=== PATIENT | female | born 1955 | race Caucasian/White ===

== ENCOUNTER 2021-11-05 18:49 | Emergency (ER) | payer MEDICARE, SELFPAY ==
[2021-11-05 19:00] VITALS: BP 179/104; PULSE 82; RESP 18; TEMP 37.1; O2SAT 96; BMI 45.4
--- NOTE | 2021-11-05 22:03 | CTR_ITS ---
PROCEDURE INFORMATION: Exam: CT Head Without Contrast Exam date and time: 11/05/2021 10:15 PM Age: 66 years old Clinical indication: Headache not specified; Patient HX: C/O COLE / facial pain TECHNIQUE: Imaging protocol: Computed tomography of the head without contrast. Sagittal and coronal reformatted images were created and reviewed. Radiation optimization: All CT scans at this facility use at least one of these dose optimization techniques: automated exposure control; mA and/or kV adjustment per patient size (includes targeted exams where dose is matched to clinical indication); or iterative reconstruction. COMPARISON: No relevant prior studies available. RADIATION DOSE METRICS: Total DLP (mGy-cm): 1000.87 FINDINGS: Brain: No acute intracranial hemorrhage. No acute infarct. No intra-axial or extra-axial masses. Oneill-white matter differentiation is preserved. No cerebral edema. No extra-axial fluid collections. No midline shift. No evidence for Chiari 1 malformation. Focal areas of decreased attenuation consistent with old lacunar infarcts in the right and left basal ganglia. Cerebral ventricles: No hydrocephalus. Paranasal sinuses: Visualized paranasal sinuses are clear. Mastoid air cells: Mastoid air cells are clear bilaterally. Orbital cavities: Globes and lenses, extraocular muscles, and optic nerves are intact bilaterally. No acute intraorbital abnormality. Vasculature: Mild atherosclerotic changes in the visualized arteries. Bones/joints: No acute fracture. Soft tissues: The extracranial soft tissues are unremarkable. CT/CT head wo con* [id number] IMPRESSION: 1. No acute abnormality of the brain. 2. Old lacunar infarcts in the right and left basal ganglia. 3. Incidental/nonacute findings are listed in the report.
--- NOTE | 2021-11-05 22:05 | W.ED.GENADLT ---
Documented by User: Angela Hart MD 11/06/21 22:01 HPI - General Adult General: Chief complaint: General Medical Stated complaint: Sensitive head/chills Time Seen by Provider: 11/05/21 21:34 History of Present Illness: Patient is a 66-year-old female with a history of headache presenting to emergency room with concerns for headache and scalp sensitivity. Patient tells me that since 2 days ago, patient has noticed that there is a burning sensation over the frontal and parietal scalp. In addition, patient developed right-sided headache that radiates towards the left side. Patient in addition complains of bilateral neck pain. Patient denies any fever but reports mild chills. Patient denies any history of shingles. Patient denies any vision changes, facial droop, focal neurological deficits. Patient denies any vesicular lesions over the head. Since this morning, patient has noticed the redness in the bilateral frontal scalp. Patient denies any chest pain, shortness breath palpitation or lightheadedness or any abdominal or complaints. Patient tells me that every time she touches her scalp feels like a burning sensation. Patient denies any recent lotion use any history of allergies, or any head wears. Onset:2 days ago Duration:2 days Location:home Severity:mild/moderate Associated symptoms: Deny chest pain, dyspnea, nausea, palpitations or vomiting Review of Systems Const: Denies: fever(s) or chills Eyes: Denies: change in vision ENMT: Denies: mouth pain Card: Denies: chest pain or palpitations Resp: Denies: dyspnea or non-productive cough GI: Denies: abdominal pain, nausea, vomiting or diarrhea : Denies: dysuria Musc: Denies: extremity pain Skin/Breast: Reports: new lesions (+frontal and scalp erythema) Neuro: Reports: other (+headache); Denies: weakness in extremities Psych: Reports: other (Normal mood) Abdi/Lymph: Denies: easy bruising PFSH ED PFSH: Medical History (Updated 11/05/21 @ 22:12 by Angela Hart MD) Headache Social History (Updated 11/05/21 @ 22:08 by Angela Hart MD) Smoking and tobacco status: never smoked Alcohol intake: never Substance/Drug Use: never Physical Exam Const: COMMON NORMALS: alert HENMT: COMMON NORMALS: atraumatic HEAD & SCALP: atraumatic MOUTH: moist mucous membranes not abnormal OTHER: + Mild nonindurated macular erythema over the frontal and and parietal scalp with mild excoriation, no palpable fluctuance over the erythema site, erythema appears to be mildly tender to palpation +TM intact b/l, no EAC erythema or edema Eye: COMMON NORMALS: EOMs intact bilaterally and conjunctivae normal CONJUNCTIVA: Yes conjunctivae normal OTHER: +flurosceine exam normal Neck/C-Spine: COMMON NORMALS: full ROM and supple Resp: COMMON NORMALS: normal respiratory effort and clear to auscultation bilaterally AUSCULTATION: clear to auscultation bilaterally Cardio: COMMON NORMALS: regular rate RATE: regular rate GI: COMMON NORMALS: Soft to palpation and non-tender PALPATION: Yes Soft to palpation Extremity: COMMON NORMALS: full ROM Neuro: SENSORIUM/ORIENTATION: Yes alert MOTOR EXAM: No Abnormal motor strength present and Other motor observations present (no focal motor deficits) Psych: COMMON NORMALS: speech normal SPEECH: Yes normal speech MOOD & AFFECT: Yes euthymic mood Skin: OTHER: + Mild nonindurated macular erythema over the frontal and and parietal scalp with mild excoriation, no palpable fluctuance over the erythema site, erythema appears to be mildly tender to palpation Course Vital Signs: Vital signs: Vital Signs Temperature 98.7 F 11/05/21 19:00 Pulse Rate 82 11/05/21 23:09 Respiratory Rate 20 H 11/05/21 23:09 Blood Pressure 158/94 11/05/21 23:09 Pulse Oximetry 95 11/05/21 23:09 [facility] - General Adult Medical Decision Making 66-year-old female with history of headache presenting to emergency room with new frontal/scalp erythema and new onset headache x2 days. On exam, patient neurologically intact. There is no signs of critical lesion on fluoreine exam of the eye. Present time, the erythema is not suggestive of herpes as it is not dermatomal and is bilateral. Patient has no physical signs of vesicles. Do not suspect Cal[place] Smith syndrome or ocular zoster. CT brain is negative for any acute finding. Lab work-up including WBC within normal limit. At the present time, do not suspect subarachnoid bleed, tenderness or other acute intra cranial processes as patient has associated rash, no fever, no nuchal rigidity or other historical details consistent with these pathologies. I have given patient follow up with our supervisor case loading to be seen by our outpatient Dermatology for scalp findings. Patient aware of a call from our supervisor case loading to schedule for appointment(s) and verbalizes understanding of the importance of following up. Patient was found to have elevated blood pressure. Patient received 5 mg of amlodipine with significant improvement in blood pressure. This patient does not have a history of prior elevated blood pressure, patient instructed follow-up PCP for further evaluation. Patient is given strict/emergent precaution for any signs of stroke-like symptoms, chest pain, vision changes, or any new or concerning complaints. Rx cephalexin for possible cellulitis, aquaphor for dry skin Disposition: Discharge. Patient counseled regarding diagnostic impression, treatment plan. Patient given ED strict return precautions to return for continuation, worsening, or development of new symptoms. Instructed to f/u w/ PCP and paper inserter regarding symptoms today. Patient verbalized understanding. Lab Data : 11/05/21 22:59 11/05/21 22:[address] 11/05/21 22:03 IMPRESSION: 1. No acute abnormality of the brain. 2. Old lacunar infarcts in the right and left basal ganglia. 3. Incidental/nonacute findings are listed in the report. Laboratory Results WBC 8.6 10^3/uL (4.0-10.0) 11/05/21 22:59 RBC 4.74 10^6/uL (4.1-5.3) 11/05/21 22:59 Hgb 14.4 g/dL (11.5-15.3) 11/05/21 22:59 Hct 43.1 % (37.0-47.0) 11/05/21 22: MCV 90.9 fl (81-99) 11/05/21 22:59 MCH 30.4 pg (28.0-34.0) 11/05/21 22:59 MCHC 33.4 g/dL (30.0-36.0) 11/05/21 22: RDW 13.8 % (12.1-15.1) 11/05/21 22:59 Plt Count 170 10^3/cmm (130-400) 11/05/21 22:59 MPV 8.5 fL (7.4-10.4) 11/05/21 22:59 Neut % (Auto) 81.4 % 11/05/21 22:59 Lymph % (Auto) 11.0 % 11/05/21 22:59 Boyd % (Auto) 6.4 % 11/05/21 22:59 Eos % (Auto) 0.8 % 11/05/21 22:59 Baso % (Auto) 0.2 % 11/05/21 22:59 Neut # (Auto) 6.98 10^3/uL (1.8-7.7) 11/05/21 22:59 Lymph # (Auto) 0.9 10^3/uL (0.8-4.8) 11/05/21 22:59 Boyd # (Auto) 0.6 10^3/uL (0.2-0.9) 11/05/21 22:59 Eos # (Auto) 0.1 10^3/uL (0.0-0.8) 11/05/21 22:59 Baso # (Auto) 0.0 10^3/uL (0.0-0.1) 11/05/21 22:59 Nucleated RBC % (auto) 0 % 11/05/21 22:59 Nucleated RBCs # 0.0 /100WBC 11/05/21 22:59 Sodium 136 mmol/L (136-145) 11/05/21 22:59 Potassium 4.9 mmol/L (3.5-5.1) 11/05/21 22:59 Chloride 100 mmol/L (98-107) 11/05/21 22:59 Carbon Dioxide 25 mmol/L (22-29) 11/05/21 22:59 Anion Gap 15.9 (5-19) 11/05/21 22:59 BUN 6 mg/dL (8-23) L 11/05/21 22:59 Creatinine 0.3 mg/dL (0.5-0.9) L 11/05/21 22:59 GFR Calculation 222.6 mL/min (90-130) H 11/05/21 22:59 Glucose 120 mg/dL (65-115) H 11/05/21 22:59 Calculated Osmolality 281 mOsm/kg (285-295) L 11/05/21 22:59 Calcium 9.5 mg/dL (8.5-10.5) 11/05/21 22:59 Imaging Data Other Imaging: Radiologist's impression: [facility] [address] [place] [address] CT Scan Report Signed Patient: Sylwia Liriano Unit #: [id number] : 1955 Age/Sex: 66 / F ADM Date: 11/05/21 Loc: ER Room/Bed: Attending Dr: Ordering Provider/Ordering MD: Angela Hart MD Date of Service: 11/05/21 Procedure(s): CT head wo con* [id number] Accession Number(s): [id number] Report Number: [id number] PROCEDURE INFORMATION: Exam: CT Head Without Contrast Exam date and time: 11/05/2021 10:15 PM Age: 66 years old Clinical indication: Headache not specified; Patient HX: C/O COLE / facial pain TECHNIQUE: Imaging protocol: Computed tomography of the head without contrast. Sagittal and coronal reformatted images were created and reviewed. Radiation optimization: All CT scans at this facility use at least one of these dose optimization techniques: automated exposure control; mA and/or kV adjustment per patient size (includes targeted exams where dose is matched to clinical indication); or iterative reconstruction. COMPARISON: No relevant prior studies available. RADIATION DOSE METRICS: Total DLP (mGy-cm): 1000.87 FINDINGS: Brain: No acute intracranial hemorrhage. No acute infarct. No intra-axial or extra-axial masses. Oneill-white matter differentiation is preserved. No cerebral edema. No extra-axial fluid collections. No midline shift. No evidence for Chiari 1 malformation. Focal areas of decreased attenuation consistent with old lacunar infarcts in the right and left basal ganglia. Cerebral ventricles: No hydrocephalus. Paranasal sinuses: Visualized paranasal sinuses are clear. Mastoid air cells: Mastoid air cells are clear bilaterally. Orbital cavities: Globes and lenses, extraocular muscles, and optic nerves are intact bilaterally. No acute intraorbital abnormality. Vasculature: Mild atherosclerotic changes in the visualized arteries. Bones/joints: No acute fracture. Soft tissues: The extracranial soft tissues are unremarkable. CT/CT head wo con* [id number] IMPRESSION: 1. No acute abnormality of the brain. 2. Old lacunar infarcts in the right and left basal ganglia. 3. Incidental/nonacute findings are listed in the report. ? Dictated By: Zoey Colindres MD Signed By: Zoey Colindres MD Signed Date/Time: 11/05/212238 DD/ 14 Discharge Plan Discharge Patient Disposition: Home Clinical Impression: Headache, Erythema, Cellulitis Condition: Stable Prescriptions: New acetaminophen 500 mg tablet 500 mg PO Q6H PRN (Reason: pain) 5 Days Qty: 20 0RF cephalexin 500 mg capsule 500 mg PO BID 7 Days Qty: 14 0RF Aquaphor Baby Diaper Rash 15 % cream 1 applic topical DAILY PRN (Reason: dry skin) 10 Days Qty: 99 0RF Discharge Orders: Discharge ED (Routine); Ordered 11/06/21 Ordered By: Felipe Cao Discharge Diet: Advance as tolerated Discharge Activity: Increase activity as tolerated Activity Restrictions/Additional Instructions: Our supervisor case loading will have you follow-up with a paper inserter in the next few days. You would be expected to have a phone call with our supervisor case loading who will put you on the schedule. You can expect a call from us in the next 2-3 days. If you don't hear from us, call us back in the emergency room at [phone]. Please come back to the emergency room you have any fever chills, worsening headache, focal weakness, nausea/vomiting, inability to perform daily activity, or any new concerning complaints. Please take your antibiotics as instructed. Watch out for signs of skin changes/redness, mouth redeness or swelling, nausea/vomiting, diarrhea, blood in the urine or any new or concering complaints. Coding Level of Care Code ED Tank Insulator Rubber for Carlos Fwgayathri Exam Comprehensive
[2021-11-05] MEDS: acetaminophen 500 mg Tablet PO (22:38)
[2021-11-05] MEDS: fluorescein 1 mg Strip EYE-BOTH (22:41)
[2021-11-05 23:03] LABS: Basophils % 0.2 %; Eosinophils # 0.1 10^3/uL (0.0-0.8); Eosinophils % 0.8 %; Hematocrit 43.1 % (37.0-47.0); Hemoglobin 14.4 g/dL (11.5-15.3); Lymphocytes # 0.9 10^3/uL (0.8-4.8); Mean Corpuscular HGB Conc 33.4 g/dL (30.0-36.0); Mean Corpuscular Hemoglobin 30.4 pg (28.0-34.0); Mean Corpuscular Volume 90.9 fl (81-99); Mean Platelet Volume 8.5 fL (7.4-10.4); Monocytes # 0.6 10^3/uL (0.2-0.9); Monocytes % 6.4 %; Neutrophils # 6.98 10^3/uL (1.8-7.7); Neutrophils % 81.4 %; Nucleated Red Blood Cells % 0 %; Platelet Count 170 10^3/cmm (130-400); Red Blood Count 4.74 10^6/uL (4.1-5.3); Red Cell Distribution Width 13.8 % (12.1-15.1); White Blood Count 8.6 10^3/uL (4.0-10.0)
[2021-11-05 23:09] VITALS: BP 158/94; PULSE 82; RESP 20; O2SAT 95
[2021-11-05 23:27] LABS: Blood Urea Nitrogen 6 mg/dL (8-23); Calcium 9.5 mg/dL (8.5-10.5); Carbon Dioxide 25 mmol/L (22-29); Chloride 100 mmol/L (98-107); Glomerular Filtration Rate 222.6 mL/min (90-130); Glucose 120 mg/dL (65-115); Osmolality Calculated 281 mOsm/kg (285-295); Sodium 136 mmol/L (136-145)
[2021-11-05 23:36] LABS: Anion Gap 15.9 (5-19); Potassium 4.9 mmol/L (3.5-5.1)
--- NOTE | 2021-11-06 15:07 | DCPLANNER ---
manager massage department had message to schedule a follow up appointment for patient with dermatology. manager massage department is unable to refer patient to the dermatology clinic, the referral needs to be from primary care physician. manager massage department called [phone] to inform patient that she would need to follow up with her primary care physician and if she needed to be referred to dermatology, then her primary care physician could refer her. manager massage department was unable to speak with patient at this time, a voicemail was left for patient to return shelter case manager phone call.
== END 2021-11-06 01:11 | disposition home or self-care (01) ==
PROVIDERS: Emergency Provider Emergency Medicine
DX: R51.9 Headache, unspecified (principal); L03.811 Cellulitis of head [any part, except face]
CPT/HCPCS: 70450; 80048; 85025; 99283

== ENCOUNTER → 2023-02-07 12:41 | Outpatient (BNVA) | payer MEDICARE, SELFPAY | PROVIDERS: PCP Nurse Practitioner; Visit Provider Internal Medicine | DX: M25.50 Pain in unspecified joint (principal); M35.00 Sjogren syndrome, unspecified; R53.83 Other fatigue; Z11.59 Encounter for screening for other viral diseases | CPT/HCPCS: 36415; 73120; 80053; 81001; 83516; 85025; 86140; 86160; 86162; 86235; 86255; 86376; 86704; 86803; 87340; 99204 ==

== ENCOUNTER → 2023-05-08 09:54 | Outpatient (BNVA) | payer MEDICARE, SELFPAY | PROVIDERS: PCP Nurse Practitioner; Visit Provider Internal Medicine | DX: R53.83 Other fatigue (principal); M35.00 Sjogren syndrome, unspecified; M25.50 Pain in unspecified joint; M79.606 Pain in leg, unspecified; I73.9 Peripheral vascular disease, unspecified | CPT/HCPCS: 99214 ==

== ENCOUNTER 2023-05-15 09:21 | Outpatient (CLI) | payer MEDICARE, SELFPAY ==
--- NOTE | 2023-05-15 10:00 | USCV_ITS ---
Sylwia Liriano Age: 67 Gender: F : 1955 Exam Date: 05/15/2023 09:37 Ordering Phys: Ambar Denney MD Technologist: Brennan Soares [place] [facility] [place]: Pain RIGHT LEFT Brachial 152.00 mmHg Brachial 148.00 mmHg Pressure (mmHg) Waveform Pressure (mmHg) Waveform 129.00 Pre-Exercise Toe Pressure 152.00 0.85 Pre-Exercise Toe/Brachial Index 1.00 FINDINGS RT and LT AS400 PROGRAMMER ANALYST and DPA are noncompressible so ABIs unobtainable Resting TBI of 0.85 on the right and 1.0 on the left CONCLUSIONS 1. Noncompressible ankle vessels 2. Normal resting TBIs bilaterally No significant arterial obstruction based on the above findings. Features of extensive arterial sclerosis Dr Sonny Paulino MD FAC (Electronically Signed) Final Date: 15 May 2023 18:51 S
== END 2023-05-15 09:22 | disposition home or self-care (01) ==
LOC: RAD 09:22
PROVIDERS: PCP Nurse Practitioner; Visit Provider Internal Medicine
DX: I73.9 Peripheral vascular disease, unspecified (principal); M25.50 Pain in unspecified joint
CPT/HCPCS: 93922

== ENCOUNTER 2024-08-11 11:50 | Outpatient (CLI) | payer MEDICARE, SELFPAY ==
--- NOTE | 2024-08-11 11:57 | USCV_ITS ---
Sylwia Liriano Age: 68 Gender: F : 1955 Exam Date: 08/11/2024 12:05 Ordering Phys: Alejandro Fu Technologist: CT Exam [place] [facility] [place] Indication: PROCEDURES: Venous duplex imaging was performed in bilateral lower extremities. Bilaterally, the common femoral, superficial femoral, profunda femoral, popliteal, posterior tibial, greater saphenous veins, and the peroneal trunk were identified and interrogated in the standard fashion. These veins were found to be easily compressible with spontaneous blood flow. No evidence of insufficiency or thrombus noted. FINDINGS: normal us CONCLUSIONS No evidence of right lower extremity DVT. No evidence of left lower extremity DVT. Reynold Lloyd MD (Electronically Signed) Final Date: 11 August 2024 18:03 S
== END 2024-08-11 11:51 | disposition home or self-care (01) ==
LOC: RAD 11:50
PROVIDERS: PCP Nurse Practitioner; Visit Provider Nurse Practitioner
DX: I83.813 Varicose veins of bilateral lower extremities with pain (principal)
CPT/HCPCS: 93970